=== PATIENT | female | born 1950 | race Caucasian/White ===

== ENCOUNTER 2020-02-17 08:53 | Inpatient (IN) | payer MEDICARE, OTHER, SELFPAY ==
[2020-02-17] VITALS (35 sets, daily range): BP systolic 66–149; BP diastolic 32–90; PULSE 81–109; RESP 12–20; TEMP 36.2–38.3; O2SAT 94–100; BMI 26.1
--- NOTE | 2020-02-17 | PATH_ITS ---
[facility] Accession Number: [id number] . 01 Material submitted: . gallbladder - GALLBLADDER . 01 Clinical history: . UPPER ABDOMINAL PAIN/FEVER . 02 Diagnosis: Gallbladder, Cholecystectomy: Acute and chronic cholecystitis, cholesterolosis and cholelithiasis. V 02/19/2020 1019 Local . 02 Electronically signed: . Rocio Zapata MD, Pathologist NPI- [id number] . 01 Gross description: . Received in formalin, labeled with the patient's name, MRN and gallbladder, is a 9.0 x 3.0 x 0.7 cm previously opened gallbladder with an attached 0.4 cm in length by 0.8 cm in diameter cystic duct. The serosal surface is pink-tobin and smooth. The specimen is opened to reveal a green-tobin viscous bile with multiple green-black calculi ranging in size from 0.2 cm to 0.4 cm in greatest dimension. The mucosa is pink-tobin and velvety. The gallbladder wall measures up to 0.3 cm. No abnormalities are identified. No lymph nodes are identified. The cystic duct margin is inked black. The cystic duct margin, a sales representative advertising section of the gallbladder body and gallbladder fundus are submitted in cassette A1. ([id number]) /MRV 02/18/2020 1045 Local . 02 Pathologist provided ICD-10: K81.2, K80.60 . 02 CPT . 844276 Performed at: 01 [facility] [address] [id number] MD Delano Roman MD Phone: [phone] Performed at: 02 [facility] [address] [place] [id number] MD Yana Agosto MD Phone: [phone]
--- NOTE | 2020-02-17 09:13 | ED.ABDPAIN ---
HPI - Abdominal Pain General Chief Complaint: Abdominal Pain Stated Complaint: abdominal pain/fever Time Seen by Provider: 02/17/20 08:54 Source: patient and EMS Mode of arrival: EMS History of Present Illness HPI narrative: Patient arrives by EMS from home. Complains 2 days of right upper quadrant pain. Fever as well. Nausea and vomiting. No diarrhea. No chest pain. No urinary complaints. History of gastric bypass 20 years ago and has been doing well. History of hysterectomy as well. No previous cholecystectomy or appendectomy. No back pain. MD complaint: abdominal pain Related Data Previous Rx's Medication Instructions Recorded docusate sodium 100 mg PO BID #20 cap 02/19/20 oxycodone 5 mg PO Q4H PRN #30 tab 02/19/20 Allergies Allergy/AdvReac Type Severity Reaction Status Date / Time No Known Drug Allergies Allergy Verified 02/17/20 14:46 Review of Systems Review of Systems Narrative: GENERAL: Complains chills, fatigue, malaise, fever, sweats. HEENT: Denies sinus pain, ear pain, sore throat, difficulty swallowing, dizziness. RESPIRATORY: Denies dyspnea, cough, wheezing, hemoptysis, sputum. CARDIOVASCULAR: Denies chest pain, palpitations, orthopnea, edema, GASTROINTESTINAL: Complains nausea, vomiting, abdominal pain, denies diarrhea, constipation, melena. : Denies dysuria, frequency, incontinence, hematuria, urinary retention. MUSCULOSKELETAL: denies weakness, joint pain, or bony pain SKIN: Denies rash, skin lesions, or other NEUROLOGIC: Denies weakness, headache, numbness, change in speech, confusion, seizures, incoordination. PSYCHIATRIC: No concerning psychosocial issues. ROS Unobtainable: All systems reviewed & are unremarkable except as noted in HPI and below Patient History Social History household members: family Smoking Status: Never smoker alcohol intake: never Exam Narrative Exam Narrative: GENERAL: patient appears stated age. Well-nourished, well-developed patient, in no distress, not toxic HEAD: Atraumatic. Normocephalic. EYES: Pupils equal round and reactive. Extraocular motions intact. No scleral icterus. No injection or drainage. ENT: Nose without bleeding, purulent drainage. Throat without erythema, tonsillar hypertrophy or exudate. Airway patent. NECK: Trachea midline. Non tender CARDIOVASCULAR: Regular rate and rhythm without murmurs, gallops, or rubs. RESPIRATORY: Clear to auscultation. Breath sounds equal bilaterally. No wheezes, rales, or rhonchi. GASTROINTESTINAL: Abdomen soft, positive Garner sign right upper quadrant. Tender to touch right upper quadrant. No CVA tenderness. Normal bowel sounds. No peritoneal signs. Patient prefers to lay on her right side EXTREMITIES: No edema or joint tenderness. BACK: Nontender without deformity or crepitance. No flank tenderness. NEURO: AOx3. SKIN: No rash or erythema of visible areas PSYCH: Not anxious, is cooperative Initial Vital Signs Initial Vital Signs: Vital Signs Temperature 100.9 F H 02/17/20 08:48 Pulse Rate 109 H 02/17/20 08:48 Respiratory Rate 14 02/17/20 08:48 Blood Pressure 123/57 L 02/17/20 08:48 Pulse Oximetry 98 02/17/20 08:48 Course Course Course Narrative: Surgeon called back from the operating room. Will admit directly Decision to Admit Date: 02/17/20 Decision to Admit time: 11:52 Orders Ordered: Discontinued Medications Acetaminophen (Tylenol) 975 mg PO NOW ONE Stop: 02/17/20 09:13 Last Admin: 02/17/20 09:22 Dose: 975 mg Documented by: GABBI Acetaminophen (Tylenol) 650 mg PO PACUNOW PRN PRN Reason: Pain, Mild (1-3) Acetaminophen (Tylenol) 650 mg PO Q4HR PRN PRN Reason: Fever/Mild Pain (1-3) Last Admin: 02/18/20 09:22 Dose: 650 mg Documented by: JIA Bupivacaine HCl/Epinephrine Bitart (Sensorcaine 0.25% W/ Epi (Pf)) 30 ml INJ NOW ONE Stop: 02/17/20 16:12 Last Admin: 02/17/20 17:01 Dose: 30 ml Documented by: Admin: 02/17/20 16:11 Dose: 30 ml Documented by: JEAN CARLOS Docusate Sodium (Colace) 100 mg PO BID RAMON Last Admin: 02/19/20 11:34 Dose: 100 mg Documented by: Admin: 02/18/20 21:32 Dose: 100 mg Documented by: Admin: 02/18/20 09:20 Dose: 100 mg Documented by: Admin: 02/17/20 21:53 Dose: 100 mg Documented by: FABRICIO Fentanyl (Sublimaze) 0 mcg IV Q5M PRN PRN Reason: Pain, Moderate (4-6) Last Admin: 02/17/20 18:01 Dose: 50 mcg Documented by: Admin: 02/17/20 17:38 Dose: 50 mcg Documented by: Admin: 02/17/20 17:30 Dose: 50 mcg Documented by: CHRIS Heparin Sodium (Porcine) (Heparin) 5,000 unit SUBCUT BID RAMON Last Admin: 02/19/20 11:34 Dose: 5,000 unit Documented by: Admin: 02/18/20 21:32 Dose: 5,000 unit Documented by: FABRICIO Hydromorphone HCl (Dilaudid) 0 mg IV Q5MIN PRN PRN Reason: Pain, Mild (1-3) Sodium Chloride (Normal Saline 0.9%) 1,000 mls @ 1,000 mls/hr IV BOLUS ONE Stop: 02/17/20 10:11 Last Infusion: 02/17/20 11:24 Dose: 0 mls/hr Documented by: Admin: 02/17/20 09:22 Dose: 1,000 mls/hr Documented by: GABBI Ceftriaxone Sodium/Dextrose (Rocephin) 1 gm in 50 mls @ 100 mls/hr IV NOW ONE Stop: 02/17/20 10:53 Last Infusion: 02/17/20 11:24 Dose: 0 mls/hr Documented by: Admin: 02/17/20 10:50 Dose: 100 mls/hr Documented by: LEANDER Sodium Chloride (Normal Saline 0.9%) 1,000 mls @ 1,000 mls/hr IV BOLUS ONE Stop: 02/17/20 11:46 Last Infusion: 02/17/20 12:02 Dose: 0 mls/hr Documented by: Admin: 02/17/20 10:51 Dose: 1,000 mls/hr Documented by: LEANDER Lactated Ringer's (Lactated Ringers) 1,000 mls @ 100 mls/hr IV CONT RAMON Last Admin: 02/18/20 06:18 Dose: 100 mls/hr Documented by: Infusion: 02/18/20 05:03 Dose: 100 mls/hr Documented by: Admin: 02/17/20 19:03 Dose: 100 mls/hr Documented by: Infusion: 02/17/20 17:18 Dose: 0 mls/hr Documented by: Admin: 02/17/20 14:36 Dose: 100 mls/hr Documented by: CHRIS Piperacillin/Tazobactam/Dextrose (Zosyn) 2.25 gm in 50 mls @ 100 mls/hr IV Q8H [facility] Last Admin: 02/18/20 11:51 Dose: 100 mls/hr Documented by: Infusion: 02/18/20 07:18 Dose: 0 mls/hr Documented by: Infusion: 02/18/20 04:09 Dose: 100 mls/hr Documented by: Admin: 02/18/20 04:09 Dose: 100 mls/hr Documented by: Infusion: 02/17/20 22:22 Dose: 100 mls/hr Documented by: Admin: 02/17/20 21:52 Dose: 100 mls/hr Documented by: Infusion: 02/17/20 15:27 Dose: 0 mls/hr Documented by: Admin: 02/17/20 15:22 Dose: 100 mls/hr Documented by: KRISTA Sodium Chloride (Normal Saline 0.9%) 1,000 mls @ 1,000 mls/hr IV BOLUS ONE Stop: 02/17/20 13:28 Last Admin: 02/17/20 13:00 Dose: 500 mls/hr Documented by: JEANNIE Piperacillin/Tazobactam/Dextrose (Zosyn) 2.25 gm in 50 mls @ 100 mls/hr IV Q6HR [facility] Last Infusion: 02/19/20 12:45 Dose: 0 mls/hr Documented by: Admin: 02/19/20 11:35 Dose: 100 mls/hr Documented by: Infusion: 02/19/20 07:30 Dose: 0 mls/hr Documented by: Admin: 02/19/20 06:20 Dose: 100 mls/hr Documented by: Infusion: 02/19/20 00:44 Dose: 0 mls/hr Documented by: Admin: 02/19/20 00:14 Dose: 100 mls/hr Documented by: Infusion: 02/18/20 17:11 Dose: 100 mls/hr Documented by: Admin: 02/18/20 16:41 Dose: 100 mls/hr Documented by: FABRICIO Metoclopramide HCl (Reglan) 10 mg IV NOW PRN PRN Reason: Nausea And Vomiting Last Admin: 02/17/20 17:30 Dose: 10 mg Documented by: CHRIS Morphine Sulfate (Morphine) 4 mg IV NOW ONE Stop: 02/17/20 09:13 Last Admin: 02/17/20 09:23 Dose: 4 mg Documented by: GABBI Morphine Sulfate (Morphine) 4 mg IV Q4HR PRN PRN Reason: breakthrough pain Non-Formulary Medication (Iindocyanine) 25 mg IV PREOP RAMON Last Admin: 02/17/20 14:57 Dose: 25 mg Documented by: ATEMES Ondansetron HCl (Zofran) 4 mg IV NOW ONE Stop: 02/17/20 09:13 Last Admin: 02/17/20 09:22 Dose: 4 mg Documented by: GABBI Ondansetron HCl (Zofran) 4 mg IV NOW PRN PRN Reason: Nausea And Vomiting Last Admin: 02/17/20 17:30 Dose: 4 mg Documented by: ATEMES Ondansetron HCl (Zofran) 4 mg IV Q4HR PRN PRN Reason: Nausea And Vomiting Oxycodone HCl (Percolone) 5 mg PO PACUNOW PRN PRN Reason: Mild or moderate pain Last Admin: 02/17/20 18:12 Dose: 5 mg Documented by: ATEMES Oxycodone HCl (Percolone) 10 mg PO Q3HR PRN PRN Reason: Pain, Severe (7-10) Last Admin: 02/18/20 21:32 Dose: 10 mg Documented by: Admin: 02/18/20 04:09 Dose: 10 mg Documented by: Admin: 02/17/20 21:52 Dose: 10 mg Documented by: FABRICIO Oxycodone HCl (Percolone) 5 mg PO Q4HR PRN PRN Reason: Pain, Moderate (4-6) Last Admin: 02/19/20 14:33 Dose: 5 mg Documented by: Admin: 02/19/20 11:34 Dose: 5 mg Documented by: Admin: 02/19/20 05:15 Dose: 5 mg Documented by: Admin: 02/18/20 16:41 Dose: 5 mg Documented by: Admin: 02/18/20 10:27 Dose: 5 mg Documented by: JIA Oxycodone/Acetaminophen (Percocet 5/325) 1 tab PO PACUNOW PRN PRN Reason: Mild or Moderate Pain Pantoprazole Sodium (Protonix) 40 mg IV BID [facility] Last Admin: 02/19/20 11:34 Dose: 40 mg Documented by: Admin: 02/18/20 21:32 Dose: 40 mg Documented by: Admin: 02/18/20 09:20 Dose: 40 mg Documented by: Admin: 02/17/20 21:53 Dose: 40 mg Documented by: FABRICIO Sodium Chloride (Normal Saline 0.9% Flush) 10 ml IV BID [facility] Last Admin: 02/19/20 11:35 Dose: 10 ml Documented by: JIA Sodium Chloride (Normal Saline 0.9% Flush) 10 ml IV PRN PRN PRN Reason: Flush Last Admin: 02/19/20 06:19 Dose: 10 ml Documented by: Admin: 02/19/20 00:14 Dose: 10 ml Documented by: ALLEN Reevaluation(s) Reevaluation #1: Pain is controlled. Blood pressure was hypotensive briefly but responded very well as IV fluids. Currently 104/57. Heart rate 94. Temperature 99.4? Time: 11:52 Consultations Consultation #1: Spoke with surgeon dr hoyos..will see pt in er Time: 11:53 Vital Signs Vital signs: Vital Signs - 8 hr 02/17/20 08:48 02/17/20 10:07 02/17/20 10:08 Temperature 100.9 F H Pulse Rate 109 H 107 H 105 H Respiratory Rate 14 12 Blood Pressure 123/57 L Pulse Oximetry 98 97 98 02/17/20 10:10 02/17/20 10:13 02/17/20 10:15 Temperature Pulse Rate 105 H 104 H 104 H Respiratory Rate 17 13 13 Blood Pressure 82/49 L 86/50 L Pulse Oximetry 98 98 98 02/17/20 10:30 02/17/20 10:36 02/17/20 10:39 Temperature Pulse Rate 102 H 99 H 99 H Respiratory Rate 16 16 19 Blood Pressure 66/34 L 67/32 L 69/36 L Pulse Oximetry 97 97 97 02/17/20 10:45 02/17/20 11:00 Temperature 99.4 F Pulse Rate 97 H 94 H Respiratory Rate 12 19 Blood Pressure 104/57 L Pulse Oximetry 98 95 MDM - Abdominal Pain Lab Data Attestation: I reviewed the patient's lab results. Result diagrams: 02/19/20 06:25 02/18/20 04:50 Labs: Lab Results 02/17/20 02/17/20 02/17/20 Range/Units 09:05 09:05 12:08 WBC 4.9 (4.5-11.0) X10^3/uL RBC 3.78 L (4.0-5.2) X10^6/uL Hgb 12.2 (12.0-16.0) g/dL Hct 35.1 L (36-46) % MCV 92.8 (80-100) fL MCH 32.2 (26-34) PG MCHC 34.7 (30-36) % RDW 12.6 (11.6-14.8) % Plt Count 189 (150-400) X10^3/uL Neut % (Auto) 97.7 H (50-75) % Lymph % (Auto) 1.6 L (25-40) % [place] % (Auto) 0.5 L (3-14) % Eos % (Auto) 0.0 L (2-4) % Baso % (Auto) 0.2 (0-2) % Neut # (Auto) 4800 (3907-4432) /uL Lymph # (Auto) 100 L (5844-3656) /uL [place] # (Auto) 0 (0-900) /uL Eos # (Auto) 0 (0-450) /uL Baso # (Auto) 0 (0-100) /uL Sodium 138 (137-145) mmol/L Potassium 3.3 L (3.4-5.1) mmol/L Chloride 106 (98-107) mmol/L Carbon Dioxide 19 L (22-32) mmol/L BUN 40 H (7-17) mg/dL Creatinine 1.54 H (0.52-1.04) mg/dL Estimated GFR 33.1 L (>60) mL/min BUN/Creatinine Ratio 26.0 H (6-22) Glucose 162 H (80-110) mg/dL Calcium 10.3 H (8.4-10.2) mg/dL Total Bilirubin 2.8 H (0.2-1.3) mg/dL AST 664 H (14-36) IU/L ALT 347 H (<35) IU/L Alkaline Phosphatase 137 H (38-126) U/L Total Protein 7.8 (6.3-8.2) g/dL Albumin 4.3 (3.5-5.0) g/dL Globulin 3.5 (1.7-4.1) g/dL Albumin/Globulin Ratio 1.2 (1.0-2.8) Lipase 172 (23-300) U/L COVID-19 PCR Negative (Negative) Imaging Data CT scan - abdomen/pelvis: Radiologist's Impression: [place] [address] CT Scan Report Signed Patient: Carrol Andersen WMR#: [id number] : 8Acct:[id number] Age/Sex: 70 / FDate of Service: 02/17/20 Loc: ED Accession Number: [id number] Procedure: CT abdomen pelvis wo con Ordering Provider: Adams Taylor MD PROCEDURE: CT ABDOMEN PELVIS WO CON INDICATIONS: RIGHT UPPER QUAD PAIN TECHNIQUE: Noncontrast 5 mm thick sections acquired from the diaphragms to the symphysis. 5 mm coronal and sagittal reformats were then performed. For radiation dose reduction, the following was used: automated exposure control, adjustment of mA and/or kV according to patient size. COMPARISON: None. FINDINGS: Image quality: Excellent. ABDOMEN: Lung bases: Incompletely visualized nodule within the right middle lobe anteriorly measuring at least 5 mm diameter. Lung bases are otherwise clear. Heart size is normal. Calcification of the coronary vasculature. Solid organs: Liver is normal in size. Gallbladder demonstrates multiple calculi within its lumen. There is posterior gallbladder wall thickening versus is layering sludge. No evidence of surrounding fat stranding. Pancreas is normal in contours. Spleen is normal in size. No adrenal nodules. Kidneys are normal in size, without hydronephrosis or nephrolithiasis. There is mild symmetrical perinephric fat stranding bilaterally. Peritoneum and bowel: Moderate hiatal hernia. Surgical clips at the gastroesophageal junction. Unenhanced bowel loops demonstrate normal wall thickness and caliber. No free fluid or air. Nodes and vessels: No retroperitoneal or mesenteric adenopathy by size criteria. Aorta and inferior vena cava are normal in caliber. Miscellaneous: No ventral hernias. PELVIS: Genitourinary: Bladder wall thickness is normal. Miscellaneous: No inguinal hernias or adenopathy. Bones: No suspicious bony lesions. Right hip arthroplasty. No vertebral body compression fractures. IMPRESSION: 1. No evidence of urinary tract calcification, nor obstruction. 2. Cholelithiasis with possible gallbladder wall thickening; initial further assessment with ultrasound to assess for cholecystitis is recommended. 3. It incompletely visualized right middle lobe pulmonary nodule; initial further assessment with noncontrast chest CT is recommended. 4. Coronary artery disease. Dictated by: Malinda Ray M.D. on 02/17/2020 at 10:12 Approved by: Malinda Ray M.D. on 02/17/2020 at 10:16 US - abdomen: Radiologist's Impression: [place] [address] Ultrasound Report Signed Patient: Carrol Andersen WMR#: [id number] : 8Acct:[id number] Age/Sex: 70 / FDate of Service: 02/17/20 Loc: ED Accession Number: [id number] Procedure: US abdomen limited Ordering Provider: Adams Taylor MD PROCEDURE: US ABDOMEN LIMITED INDICATIONS: RUQ PAIN, ABN CT TECHNIQUE: Real-time scanning was performed of the abdominal and retroperitoneal organs, with image documentation. COMPARISON: None. FINDINGS: Liver: Liver is normal in size and is coarsely echogenic. No discrete hepatic lesion is noted. Gallbladder: Gallbladder is distended. Mobile stones and sludge material is seen in dependent portion of gallbladder lumen. Mild gallbladder wall thickening is seen measures up to 8 millimeters in thickness. Trace amount of pericholecystic fluid is seen with suggestion of sonographic Garner sign. Biliary ducts: Intrahepatic bile ducts are non-dilated. Extrahepatic bile duct caliber measures 8 mm. Normal is 6-7 mm or less in diameter, or 10 mm or less post-cholecystectomy. Pancreas: Visualized portions of the pancreas are sonographically normal. IMPRESSION: 1. Distended gallbladder with cholelithiasis and gallbladder wall thickening. Small amount of pericholecystic fluid and sonographic Garner sign was noted during this study. Finding is suggestive of acute cholecystitis. 2. Mildly prominent common bile duct measures up to 8 millimeters in diameter. 3. Suggestion of hepatic steatosis. Dictated by: Rajinder Vázquez M.D. on 02/17/2020 at 10:21 Approved by: Rajinder Vázquez M.D. on 02/17/2020 at 10:23 ECG Data Attestation: I personally reviewed and interpreted this ECG as follows: Interpretation: Sinus tachycardia no ST elevation or depression MDM Narrative Medical decision making narrative: Of appropriate for admission hospital for acute cholecystitis. Antibiotics given. Surgeon contacted. Desires to have MRCP/MRI Discharge Plan Departure Patient Disposition: Admitted As Inpatient Clinical Impression: Acute calculous cholecystitis Discharge Date/Time: 02/17/20 13:03 Instructions: DI for Lam-Judd Drains, How to Prevent Falls, DI for Prescription Opioid Use, Stool Softeners, Oxycodone, DI for Laparoscopic Cholecystectomy, [facility]: Wound Care Referrals: Lorrie Hoyos MD [Physician] - Admit Date/Time: 02/17/20 12:14 Admit Provider: Lorrie Hoyos Forms: Surgery Discharge
[2020-02-17 09:18] LABS: Add Manual Diff / Slide Review NO; Basophils Absolute Auto 0 /uL (0-100); Basophils Percent Auto 0.2 % (0-2); Eosinophils Absolute Auto 0 /uL (0-450); Hematocrit 35.1 % (36-46); Hemoglobin 12.2 g/dL (12.0-16.0); Lymphocytes Absolute Auto 100 /uL (1100-4500); Lymphocytes Percent Auto 1.6 % (25-40); Mean Corpuscular HGB Conc 34.7 % (30-36); Mean Corpuscular Hemoglobin 32.2 PG (26-34); Mean Corpuscular Volume 92.8 fL (80-100); Monocytes Absolute Auto 0 /uL (0-900); Monocytes Percent Auto 0.5 % (3-14); Neutrophils Absolute Auto 4800 /uL (1500-7000); Neutrophils Percent Auto 97.7 % (50-75); Platelet Count 189 X10^3/uL (150-400); Red Blood Cell Count 3.78 X10^6/uL (4.0-5.2); Red Cell Distribution Width 12.6 % (11.6-14.8); White Blood Cell Count 4.9 X10^3/uL (4.5-11.0)
[2020-02-17] MEDS: ONDANSETRON 4 MG/2 ML INJ IV ×2 (09:22→17:30)
[2020-02-17] MEDS: SODIUM CHLORIDE 0.9% 1,000 ML 1000 ML IV ×2 (09:22→10:51)
[2020-02-17] MEDS: ACETAMINOPHEN 325 MG TABLET 975 MG PO (09:22)
[2020-02-17] MEDS: MORPHINE 4 MG/ML INJ IV (09:23)
[2020-02-17 09:30] LABS: Alanine Aminotransferase 347 IU/L (<35); Albumin 4.3 g/dL (3.5-5.0); Albumin Globulin Ratio 1.2 (1.0-2.8); Alkaline Phosphatase 137 U/L (38-126); Aspartate Aminotransferase 664 IU/L (14-36); Bilirubin Total 2.8 mg/dL (0.2-1.3); Blood Urea Nitrogen 40 mg/dL (7-17); Calcium 10.3 mg/dL (8.4-10.2); Carbon Dioxide 19 mmol/L (22-32); Chloride 106 mmol/L (98-107); Estimated Glomerular Filt Rate 33.1 mL/min (>60); Globulin 3.5 g/dL (1.7-4.1); Glucose 162 mg/dL (80-110); HEMOLYSIS < 15 (0-50); Lipase 172 U/L (23-300); Potassium 3.3 mmol/L (3.4-5.1); Sodium 138 mmol/L (137-145); Total Protein 7.8 g/dL (6.3-8.2)
--- NOTE | 2020-02-17 10:29 | DI.US.S_ITS ---
PROCEDURE: US ABDOMEN LIMITED INDICATIONS: RUQ PAIN, ABN CT TECHNIQUE: Real-time scanning was performed of the abdominal and retroperitoneal organs, with image documentation. COMPARISON: None. FINDINGS: Liver: Liver is normal in size and is coarsely echogenic. No discrete hepatic lesion is noted. Gallbladder: Gallbladder is distended. Mobile stones and sludge material is seen in dependent portion of gallbladder lumen. Mild gallbladder wall thickening is seen measures up to 8 millimeters in thickness. Trace amount of pericholecystic fluid is seen with suggestion of sonographic Garner sign. Biliary ducts: Intrahepatic bile ducts are non-dilated. Extrahepatic bile duct caliber measures 8 mm. Normal is 6-7 mm or less in diameter, or 10 mm or less post-cholecystectomy. Pancreas: Visualized portions of the pancreas are sonographically normal. IMPRESSION: 1. Distended gallbladder with cholelithiasis and gallbladder wall thickening. Small amount of pericholecystic fluid and sonographic Garner sign was noted during this study. Finding is suggestive of acute cholecystitis. 2. Mildly prominent common bile duct measures up to 8 millimeters in diameter. 3. Suggestion of hepatic steatosis. Dictated by: Rajinder Vázquez M.D. on 02/17/2020 at 10:21 Approved by: Rajinder Vázquez M.D. on 02/17/2020 at 10:23
[2020-02-17] MEDS: CEFTRIAXONE 1 GM/50 ML FROZ.PIGGY IV (10:50)
--- NOTE | 2020-02-17 12:37 | P.HP_ITS ---
History of Present Illness History of Present Illness Date Patient Seen: 02/17/20 Time Patient Seen: 12:37 Chief complaint: upper abdominal pain/fever Narrative: This is a 70-year-old woman with history of DM2, HTN, hysterectomy, and Tristen-en-Y gastric bypass many years ago, and marginal ulcer, who has had several episodes of epigastric pain, the worst of which was beginning last evening and has lasted through the night into this morning. She came into the ER with severe epigastric pain was found to have imaging and labs consistent with acute cholecystitis. Her LFTs and bilirubin are elevated, and her bile duct was enlarged on ultrasound, and therefore MRCP was recommended, and is pending at this time. She denies any significant cardiac history. She does say she has a chronic kidney dysfunction, which has been stable for many years. Her creatinine in the ER is 1.5. Her AST and ALT are 664 in 347, her alk-phos is 137, and her T bili is 2.8. Her white count is 4.9, and she has a left shift with PMNs 98%. She denies any fever or jaundice at home. She did have a temperature 100.9? when she came into the ER, which has come down to 99.4 at this time. She has gotten Rocephin and some fluid boluses. Her blood pressure dropped into the 60s a few hours ago, but has been in the 1 100s systolic for the past few hours. She is normally hypertensive at baseline, and takes antihypertensive medications. PMH: DM2, HTN, CKD, marginal ulcer PSH: RYGBP 20 years ago, hysterectomy, tummy tuck Meds: omeprazole, irbesartan, HCTZ (pt does not know doses, but daughter will find out and call nurse) Allergies: denies FMH: DM2, denies family history of liver or biliary disease SOC: denies TOB, EtOH, other substances; moved here three weeks ago from [facility]; says she maintained excellent medical care in [place] Review of Systems Narrative: GENERAL: Complains chills, fatigue, malaise, fever, sweats. HEENT: Denies sinus pain, ear pain, sore throat, difficulty swallowing, dizziness. RESPIRATORY: Denies dyspnea, cough, wheezing, hemoptysis, sputum. CARDIOVASCULAR: Denies chest pain, palpitations, orthopnea, edema, GASTROINTESTINAL: Complains nausea, vomiting, abdominal pain, denies diarrhea, constipation, melena. : Denies dysuria, frequency, incontinence, hematuria, urinary retention. MUSCULOSKELETAL: denies weakness, joint pain, or bony pain SKIN: Denies rash, skin lesions, or other NEUROLOGIC: Denies weakness, headache, numbness, change in speech, confusion, seizures, incoordination. PSYCHIATRIC: No concerning psychosocial issues. Physical Exam GENERAL: Alert, uncomfortable. No jaundice. Nontoxic appearing. Appears stated age. Answers questions promptly and appropriately. Vital signs noted. HENT: Normocephalic, atraumatic. Hearing intact. EYES: Conjunctiva pink, sclera white, no periorbital swelling. CARDIOVASCULAR: Regular rate. No pedal edema. RESPIRATORY: Non-tachypneic, breathing comfortably on room air. GASTROINTESTINAL: Abdomen soft and non-distended; minimally tender, with well- healed laparoscopic gastric bypass incisional scar GENITALURINARY: No flank tenderness. MUSCULOSKELETAL: Equal tone and mass bilaterally. SKIN: Warm, dry, soft, appropriate color for ethnicity. No other lesions, rashes, or wounds. NEURO: Alert and Oriented X 3. No gross sensory deficits, or cognitive issues. PSYCH: Appropriate affect and mood. Patient History Family & Social History Safety & Behavioral: Feels Safe in Current Yes Environment Been Physically Hurt or No Threatened By a Person Tobacco & Substance use: Smoking Status Unknown if ever smoked alcohol intake frequency holiday/special occasion Substance Use Type does not use Meds Home Medications and Allergies Allergies Allergy/AdvReac Type Severity Reaction Status Date / Time No Known Drug Allergies Allergy Verified 02/17/20 14:46 Exam Vital Signs (past 8 hours): - 02/17/20 08:48 02/17/20 10:07 02/17/20 10:08 Temperature 100.9 F H Pulse Rate 109 H 107 H 105 H Respiratory Rate 14 12 Blood Pressure 123/57 L Pulse Oximetry 98 97 98 02/17/20 10:10 02/17/20 10:13 02/17/20 10:15 Temperature Pulse Rate 105 H 104 H 104 H Respiratory Rate 17 13 13 Blood Pressure 82/49 L 86/50 L Pulse Oximetry 98 98 98 02/17/20 10:30 02/17/20 10:36 02/17/20 10:39 Temperature Pulse Rate 102 H 99 H 99 H Respiratory Rate 16 16 19 Blood Pressure 66/34 L 67/32 L 69/36 L Pulse Oximetry 97 97 97 02/17/20 10:45 02/17/20 11:00 02/17/20 11:15 Temperature 99.4 F Pulse Rate 97 H 94 H 94 H Respiratory Rate 12 19 19 Blood Pressure 104/57 L 103/59 L Pulse Oximetry 98 95 95 02/17/20 11:30 02/17/20 11:45 02/17/20 12:00 Temperature Pulse Rate 93 H 89 93 H Respiratory Rate 19 17 16 Blood Pressure 99/56 L 104/55 L 105/55 L Pulse Oximetry 98 97 100 02/17/20 12:15 02/17/20 12:30 Temperature Pulse Rate 92 H 94 H Respiratory Rate 18 15 Blood Pressure 102/57 L 106/59 L Pulse Oximetry 100 98 Oxygen Delivery Method Room Air Objective Imaging CT scan - abdomen: My impression: Thickened dilated gall bladder with edema Radiologist's impression: PROCEDURE: CT ABDOMEN PELVIS WO CON INDICATIONS: RIGHT UPPER QUAD PAIN TECHNIQUE: Noncontrast 5 mm thick sections acquired from the diaphragms to the symphysis. 5 mm coronal and sagittal reformats were then performed. For radiation dose reduction, the following was used: automated exposure control, adjustment of mA and/or kV according to patient size. COMPARISON: None. FINDINGS: Image quality: Excellent. ABDOMEN: Lung bases: Incompletely visualized nodule within the right middle lobe anteriorly measuring at least 5 mm diameter. Lung bases are otherwise clear. Heart size is normal. Calcification of the coronary vasculature. Solid organs: Liver is normal in size. Gallbladder demonstrates multiple calculi within its lumen. There is posterior gallbladder wall thickening versus is layering sludge. No evidence of surrounding fat stranding. Pancreas is normal in contours. Spleen is normal in size. No adrenal nodules. Kidneys are normal in size, without hydronephrosis or nephrolithiasis. There is mild symmetrical perinephric fat stranding bilaterally. Peritoneum and bowel: Moderate hiatal hernia. Surgical clips at the gastroesophageal junction. Unenhanced bowel loops demonstrate normal wall thickness and caliber. No free fluid or air. Nodes and vessels: No retroperitoneal or mesenteric adenopathy by size criteria. Aorta and inferior vena cava are normal in caliber. Miscellaneous: No ventral hernias. PELVIS: Genitourinary: Bladder wall thickness is normal. Miscellaneous: No inguinal hernias or adenopathy. Bones: No suspicious bony lesions. Right hip arthroplasty. No vertebral body compression fractures. IMPRESSION: 1. No evidence of urinary tract calcification, nor obstruction. 2. Cholelithiasis with possible gallbladder wall thickening; initial further assessment with ultrasound to assess for cholecystitis is recommended. 3. It incompletely visualized right middle lobe pulmonary nodule; initial further assessment with noncontrast chest CT is recommended. 4. Coronary artery disease. Dictated by: aMlinda Ray M.D. on 02/17/2020 at 10:12 Approved by: Malinda Ray M.D. on 02/17/2020 at 10:16 US - abdomen: Radiologist's Impression: [address] [address] Ultrasound Report Signed Patient: Carrol Andersen WMR#: [id number] : 8Acct:[id number] Age/Sex: 70 / FDate of Service: 02/17/20 Loc: ED Accession Number: [id number] Procedure: US abdomen limited Ordering Provider: Adams Taylor MD PROCEDURE: US ABDOMEN LIMITED INDICATIONS: RUQ PAIN, ABN CT TECHNIQUE: Real-time scanning was performed of the abdominal and retroperitoneal organs, with image documentation. COMPARISON: None. FINDINGS: Liver: Liver is normal in size and is coarsely echogenic. No discrete hepatic lesion is noted. Gallbladder: Gallbladder is distended. Mobile stones and sludge material is seen in dependent portion of gallbladder lumen. Mild gallbladder wall thickening is seen measures up to 8 millimeters in thickness. Trace amount of pericholecystic fluid is seen with suggestion of sonographic Garner sign. Biliary ducts: Intrahepatic bile ducts are non-dilated. Extrahepatic bile duct caliber measures 8 mm. Normal is 6-7 mm or less in diameter, or 10 mm or less post-cholecystectomy. Pancreas: Visualized portions of the pancreas are sonographically normal. IMPRESSION: 1. Distended gallbladder with cholelithiasis and gallbladder wall thickening. Small amount of pericholecystic fluid and sonographic Garner sign was noted during this study. Finding is suggestive of acute cholecystitis. 2. Mildly prominent common bile duct measures up to 8 millimeters in diameter. 3. Suggestion of hepatic steatosis. Dictated by: Rajinder Vázquez M.D. on 02/17/2020 at 10:21 Approved by: Rajinder Vázquez M.D. on 02/17/2020 at 10:23 Labs Result Diagrams: 02/17/20 09:05 02/17/20 09:05 Labs: Laboratory Results - last 24 hr 02/17/20 02/17/20 09:05 09:05 WBC 4.9 RBC 3.78 L Hgb 12.2 Hct 35.1 L MCV 92.8 MCH 32.2 MCHC 34.7 RDW 12.6 Plt Count 189 Neut % (Auto) 97.7 H Lymph % (Auto) 1.6 L [place] % (Auto) 0.5 L Eos % (Auto) 0.0 L Baso % (Auto) 0.2 Neut # (Auto) 4800 Lymph # (Auto) 100 L [place] # (Auto) 0 Eos # (Auto) 0 Baso # (Auto) 0 Sodium 138 Potassium 3.3 L Chloride 106 Carbon Dioxide 19 L BUN 40 H Creatinine 1.54 H Estimated GFR 33.1 L BUN/Creatinine Ratio 26.0 H Glucose 162 H Calcium 10.3 H Total Bilirubin 2.8 H AST 664 H ALT 347 H Alkaline Phosphatase 137 H Total Protein 7.8 Albumin 4.3 Globulin 3.5 Albumin/Globulin Ratio 1.2 Lipase 172 Assessment & Plan Assessment and plan (1) Acute calculous cholecystitis: Status: Acute (2) HTN (hypertension): Status: Acute (3) H/O gastric bypass: Status: Acute (4) Chronic marginal ulcer: Status: Acute (5) CKD (chronic kidney disease) stage 3, GFR 30-59 ml/min: Status: Acute Assessment & Plan narrative: This is a 70 yo woman with acute calculus cholecy stitis. Risks and benefits of laparoscopic possible open cholecystectomy, possible intra op cholangiogram were discussed with the patient who desires to proceed with surgery. Risk of bleeding, infection , damage to nearby structures, need for additional procedures, bile leak, bile duct injury, need for open surgery, need for transfer to tertiary center. The patient desires to proceed. Plan: proceed to OR for lap/open hira admit post op for ongoing IV antibiotics COVID-19 COVID-19 status: Negative Result date/Date tested (Pos, Neg/Pending): 02/17/20 Quality VTE Deep Vein Thrombosis/Pulmonary Embolism Present on Admission: No
[2020-02-17] MEDS: SODIUM CHLORIDE 0.9% 1,000 ML 500 ML IV (13:00)
[2020-02-17 13:11] LABS: COVID19 -Nasal RAPID Negative (Negative)
[2020-02-17] MEDS: ONDANSETRON 4 MG/2 ML INJ (13:31)
--- NOTE | 2020-02-17 14:29 | PC.NURSE ---
Admit Pt arrived from ER nausea, emesis reported. Medicated. IVF infusing. Pt taken to MRI and promptly down to PACU on arrival back to floor. 1420. Daughter is in room and assisted to complete admission. She will await update in Rm 222.
--- NOTE | 2020-02-17 14:34 | DI.MRI.S_ITS ---
PROCEDURE: MR ABDOMEN WO CON INDICATIONS: Acute cholecystitis TECHNIQUE: Coronal HASTE through the abdomen, axial 2-D FLASH in- and [id number], and breath-hold T2 FSE with fat saturation through the biliary system and pancreas. Oblique coronal and axial thin-slice HASTE, radial thick-slab HASTE centered on the extrahepatic bile ducts. Intravenous secretin: Not requested. COMPARISON: None. FINDINGS: Image quality: Excellent. Pancreas and biliary system: Gallbladder is distended and there is diffuse gallbladder wall edema in keeping with acute cholecystitis. There are numerous layering in the dependent gallstones measuring up to 9 mm No extrahepatic bile duct dilatation. No intrahepatic bile duct dilatation. There is significant motion artifact on the axial thin slice T2 weighted pulse sequence, with some intraluminal signal abnormalities which are probably artifactual given that they are not confirmed on any other pulse sequences. The ampullary segment is not well seen, technically nonspecific and recommend clinical correlation to exclude stricture , versus spasm. Other solid organs: Liver is normal in size. Spleen is normal in size. No adrenal nodules. Bilateral T2 hyperintense presumed renal cysts. Nodes and vessels: No retroperitoneal or mesenteric adenopathy by size criteria. Aorta and inferior vena cava are normal in size. Bowel and peritoneum: Unenhanced bowel loops are normal in caliber. No free fluid. Small hiatal hernia. Lung bases: No basal pleural effusions. Heart size is normal. Bones and soft tissues: No ventral hernias. Bone marrow is of normal overall signal. IMPRESSION: Acute cholecystitis and cholelithiasis. No definite choledocholithiasis although motion degraded examination as discussed above. Findings personally discussed with Dr. Hoyos on 02/17/20. Dictated by: Yang Knapp M.D. on 02/17/2020 at 14:54 Approved by: Yang Knapp M.D. on 02/17/2020 at 15:02
[2020-02-17] MEDS: LACTATED RINGERS 1,000 ML 100 ML IV ×2 (14:36→19:03)
[2020-02-17] MEDS: INDOCYANINE GREEN 25 EACH IV (14:57)
[2020-02-17] MEDS: PIPERACILLIN-TAZO 2.25 GM/50 ML FROZ.PIGGY IV ×2 (15:22→21:52)
--- NOTE | 2020-02-17 15:59 | SUR.OPER ---
Supine on padded OR bed, head on pillow, safety belt at thigh, left arm padded and tucked at side. Right arm secured on padded arm oard <90 degrees abduction. Legs uncrossed. Padded footboard in place. Tape over blanket to secure lower legs.
[2020-02-17] MEDS: BUPIVACAINE 0.25% W/ EPI 30 ML VIAL INJ ×2 (16:11→17:01)
--- NOTE | 2020-02-17 16:28 | SUR.OPER ---
19fr martha drain
--- NOTE | 2020-02-17 17:13 | P.OP_ITS ---
Operative Date/Time/Diagnoses Date of procedure: 02/17/20 Time of procedure: 17:13 Pre-op diagnosis: Acute cholecystitis, transaminitis Post-op diagnosis: same Procedure & Clinicians Procedure: Laparoscopic cholecystectomy, indocyanine cholangiography Same procedure as scheduled: Yes Indications: 70 yo woman with acute cholecystitis by imaging, labs, and history Surgeon: Lorrie Hoyos Click Yes if Unassisted: Yes Anesthesia Type: General Operative Notes Findings: Flaccid gall bladder with transmural leakage of bile through the gall bladder wall, dense adhesions of the omentum to the gall bladder surface; good critical view of safety prior to dividing the cystic duct Specimen(s): other (gall bladder) Estimated Blood Loss (mL): 30 Procedure in detail: The patient was brought into the operating room and placed supine on the OR table. Sequential compression devices were placed on both legs and turned on. Appropriate perioperative antibiotics were given prior to the start of surgery. General anesthesia was induced the patient was intubated. The abdomen was prepped and draped in sterile fashion. Surgical time-out was conducted. Local anesthetic was injected under the skin just superior to the umbilicus and a 5 mm vertical incision was made at this site. The umbilical stalk was grasped with a Darrius and elevated. A Veress needle was passed through the fascia into proper position. The position was tested with a saline drop test which was appropriate for intra-abdominal Veress needle placement. The abdomen was then insufflated in the usual fashion. Once insufflated to 15 mm Hg the Veress needle was removed and a 5 mm optical trocar was placed under direct vision using a 5 mm 30 degree scope. Once the camera was inside the abdomen I took a look around. There was no injury from port placement. Two additional ports were placed in a similar fashion in the right upper quadrant and a 10 mm port was placed in the epigastrium. I grasped and elevated the gall bladder, and found that it was covered with adherent omentum. The omentum was carefully dissected down, revealing a tense and borderline gangrenous gall bladder with transmural leakage of bile. There was bile tinged pericholecystic fluid without evidence of a gall bladder perforation. I grasped the fundus with a toothed grasper and elevated it in the usual way. I laparoscopic needle had to be used to drain the gall bladder so that it could be grasped. The bile was dark brownish green. Once it was draine d I positioned it to dissect out the hilum by elevating it and retracting the hilum to the patient's right. Indocyanine green was given previously in the pre op area, so at this point I was able to turn on the flourescent lamp and view the bile ducts. This was very helpful as the ducts were obscured with acute and chronic inflammatory tissue. Once the pathway of the ducts was clearly seen, I was able to proceed with dissection of the cystic duct and artery. Once I was able to clearly identify the cystic duct and artery with liver behind and between the two structures, I placed three clips on the patient side and once clip on the gall bladder side and divided the duct and artery using laparoscopic Sheldon. The cystic duct was soft, without evidence of obstructing stones. I placed an 0 PDS endoloop on the duct to ensure it was securely closed. Once this was done, I dissected the gall bladder off of the gall bladder fossa of the liver with cautery. The liver was soft and fatty, and it cracked and bled easily. Bleeding was controlled with cautery and Surgicell. Once the gall bladder was entirely freed from the liver, the gall bladder was placed inside an Endo-Catch bag and removed through the epigastric port site. I did not have to enlarge the epigastric site in order to get the gallbladder out as it was drained out. Once it was out and passed off to the back table I then took another look inside the abdomen. I irrigated with one liter of saline, and suctioned clean any remaining blood or fluid on the lateral side of the liver and in the subhepatic space. There was no further bleeding or bile seen. At this point a 19 round martha drain was placed through the right lateral port site, and positioned in the gall bladder fossa. The drain was secured to the skin with a 3-0 Nylon suture. The epigastric port site was closed with O Vicryl using a Gera Erin device. At this point the insufflation was removed from the abdomen and the epigastric port site was closed with 3-O Vicryl in the subcutaneous layers, and 4 Monocryl in the skin. The remaining port sites were closed with 4 Monocryl in the skin. The epigastric port site was sealed with steri strips. The remaining ports were sealed with Dermabond. Local anesthetic was given at each of the port sites and in the fascia. This concluded the procedure. At this point the needle sponge and instrument counts were correct x 2. The gallbladder was passed off the table for pathology. Patient was awakened from anesthesia and extubated. She was transferred to the postanesthesia care unit in stable condition. Complications: none Post-operative Condition: stable Disposition: PACU
[2020-02-17] MEDS: METOCLOPRAMIDE 10 MG/2 ML INJ IV (17:30)
[2020-02-17] MEDS: fentaNYL 100 MCG/2 ML INJ IV ×3 (17:30→18:01)
[2020-02-17] MEDS: OXYCODONE IR 5 MG TABLET PO (18:12)
--- NOTE | 2020-02-17 18:23 | SUR.PHASEI ---
Medicated for c/o nausea and pain.
[2020-02-17] MEDS: OXYCODONE IR 10 MG TABLET PO (21:52)
[2020-02-17] MEDS: PANTOPRAZOLE 40 MG VIAL IV (21:53)
[2020-02-17] MEDS: DOCUSATE 100 MG CAPSULE PO (21:53)
[2020-02-18 04:00] VITALS: BP 124/65; PULSE 79; RESP 17; TEMP 37.3; O2SAT 98
[2020-02-18] MEDS: OXYCODONE IR 10 MG TABLET PO ×2 (04:09→21:32)
[2020-02-18] MEDS: PIPERACILLIN-TAZO 2.25 GM/50 ML FROZ.PIGGY IV ×3 (04:09→16:41)
[2020-02-18 05:13] LABS: Add Manual Diff / Slide Review NO; Basophils Absolute Auto 0 /uL (0-100); Basophils Percent Auto 0.1 % (0-2); Eosinophils Absolute Auto 0 /uL (0-450); Eosinophils Percent Auto 0.1 % (2-4); Hemoglobin 9.7 g/dL (12.0-16.0); Lymphocytes Absolute Auto 300 /uL (1100-4500); Lymphocytes Percent Auto 1.8 % (25-40); Mean Corpuscular HGB Conc 33.6 % (30-36); Mean Corpuscular Hemoglobin 31.8 PG (26-34); Mean Corpuscular Volume 94.7 fL (80-100); Monocytes Absolute Auto 700 /uL (0-900); Monocytes Percent Auto 4.2 % (3-14); Neutrophils Absolute Auto 16300 /uL (1500-7000); Neutrophils Percent Auto 93.8 % (50-75); Platelet Count 128 X10^3/uL (150-400); Red Blood Cell Count 3.06 X10^6/uL (4.0-5.2); Red Cell Distribution Width 12.7 % (11.6-14.8); White Blood Cell Count 17.4 X10^3/uL (4.5-11.0)
[2020-02-18 05:22] LABS: Alanine Aminotransferase 280 IU/L (<35); Albumin Globulin Ratio 1.1 (1.0-2.8); Alkaline Phosphatase 55 U/L (38-126); Aspartate Aminotransferase 294 IU/L (14-36); BUN Creatinine Ratio 20.1 (6-22); Bilirubin Total 0.8 mg/dL (0.2-1.3); Blood Urea Nitrogen 31 mg/dL (7-17); Calcium 8.4 mg/dL (8.4-10.2); Carbon Dioxide 22 mmol/L (22-32); Chloride 105 mmol/L (98-107); Estimated Glomerular Filt Rate 33.1 mL/min (>60); Globulin 2.8 g/dL (1.7-4.1); Glucose 137 mg/dL (80-110); HEMOLYSIS < 15 (0-50); Sodium 135 mmol/L (137-145); Total Protein 5.8 g/dL (6.3-8.2)
[2020-02-18] MEDS: LACTATED RINGERS 1,000 ML 100 ML IV (06:18)
[2020-02-18 08:30] VITALS: BP 100/56; PULSE 76; RESP 16; TEMP 37.2; O2SAT 100
--- NOTE | 2020-02-18 08:51 | P.PN_ITS ---
Subjective Subjective Date Patient Seen: 02/18/20 Time Patient Seen: 08:51 Interval history: No acute events over night. Pt says she feels much better. Not much appetite, c/o headache. Exam Vital Signs (past 8 hours): - 02/18/20 04:00 Temperature 99.2 F Pulse Rate 79 Respiratory Rate 17 Blood Pressure 124/65 Pulse Oximetry 98 Oxygen Delivery Method Room Air Oxygen Flow Rate 0 Narrative Exam Narrative: GENERAL: Alert, comfortable. Answers questions promptly and appropriately. Vital signs noted. HENT: Normocephalic, atraumatic. Hearing intact. EYES: Conjunctiva pink, sclera white, no periorbital swelling. CARDIOVASCULAR: Regular rate. No pedal edema. RESPIRATORY: Non-tachypneic, breathing comfortably on room air. GASTROINTESTINAL: Abdomen soft and non-distended, PARTH drain with then serosanguineous output GENITALURINARY: No flank tenderness. MUSCULOSKELETAL: Equal tone and mass bilaterally. SKIN: Warm, dry, soft, appropriate color for ethnicity. No other lesions, rashes, or wounds. NEURO: Alert and Oriented X 3. No gross sensory deficits, or cognitive issues. PSYCH: Appropriate affect and mood. Objective Labs Result Diagrams: 02/18/20 04:50 02/18/20 04:50 Labs: Laboratory Results - last 24 hr 02/17/20 02/17/20 02/17/20 09:05 09:05 12:08 WBC 4.9 RBC 3.78 L Hgb 12.2 Hct 35.1 L MCV 92.8 MCH 32.2 MCHC 34.7 RDW 12.6 Plt Count 189 Neut % (Auto) 97.7 H Lymph % (Auto) 1.6 L [place] % (Auto) 0.5 L Eos % (Auto) 0.0 L Baso % (Auto) 0.2 Neut # (Auto) 4800 Lymph # (Auto) 100 L [place] # (Auto) 0 Eos # (Auto) 0 Baso # (Auto) 0 Sodium 138 Potassium 3.3 L Chloride 106 Carbon Dioxide 19 L BUN 40 H Creatinine 1.54 H Estimated GFR 33.1 L BUN/Creatinine Ratio 26.0 H Glucose 162 H Calcium 10.3 H Total Bilirubin 2.8 H AST 664 H ALT 347 H Alkaline Phosphatase 137 H Total Protein 7.8 Albumin 4.3 Globulin 3.5 Albumin/Globulin Ratio 1.2 Lipase 172 COVID-19 PCR Negative 02/18/20 02/18/20 04:50 04:50 WBC 17.4 H D RBC 3.06 L Hgb 9.7 L Hct 29.0 L MCV 94.7 MCH 31.8 MCHC 33.6 RDW 12.7 Plt Count 128 L Neut % (Auto) 93.8 H Lymph % (Auto) 1.8 L [place] % (Auto) 4.2 Eos % (Auto) 0.1 L Baso % (Auto) 0.1 Neut # (Auto) 30526 H Lymph # (Auto) 300 L [place] # (Auto) 700 Eos # (Auto) 0 Baso # (Auto) 0 Sodium 135 L Potassium 4.0 Chloride 105 Carbon Dioxide 22 BUN 31 H Creatinine 1.54 H Estimated GFR 33.1 L BUN/Creatinine Ratio 20.1 Glucose 137 H Calcium 8.4 Total Bilirubin 0.8 AST 294 H ALT 280 H Alkaline Phosphatase 55 D Total Protein 5.8 L Albumin 3.0 L Globulin 2.8 Albumin/Globulin Ratio 1.1 Lipase COVID-19 PCR Assessment & Plan Assessment and plan (1) Chronic marginal ulcer: Status: Acute (2) CKD (chronic kidney disease) stage 3, GFR 30-59 ml/min: Status: Acute (3) H/O gastric bypass: Status: Acute (4) HTN (hypertension): Status: Acute (5) Acute calculous cholecystitis: Status: Acute Assessment & Plan narrative: 70-year-old woman doing well postop day 1 from laparoscopic cholecystectomy. Her white count has gone up as expected given the surgery yesterday and the significant infectious and inflammatory process going on in her right upper quadrant. We will slowly advance her diet, have her ambulate, and treat her pain. I will continue IV antibiotics renally dosed. We will consider dispo once her white count is coming down. Plan: Ambulate Advanced diet as tolerated IV antibiotic DVT prophylaxis Hold home blood pressure meds for now Will continue PPI for history of marginal ulcer Drain teaching COVID-19 COVID-19 status: Negative Result date/Date tested (Pos, Neg/Pending): 02/17/20 Time Spent With Patient Time with patient: 15-24 minutes Quality VTE Deep Vein Thrombosis/Pulmonary Embolism Present on Admission: No
[2020-02-18] MEDS: PANTOPRAZOLE 40 MG VIAL IV ×2 (09:20→21:32)
[2020-02-18] MEDS: DOCUSATE 100 MG CAPSULE PO ×2 (09:20→21:32)
[2020-02-18] MEDS: ACETAMINOPHEN 325 MG TABLET 650 MG PO (09:22)
[2020-02-18] MEDS: OXYCODONE IR 5 MG TABLET PO ×2 (10:27→16:41)
[2020-02-18 12:30] VITALS: BP 113/60; PULSE 71; RESP 16; TEMP 36.8; O2SAT 99
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
[2020-02-18 16:46] VITALS: BP 117/68; PULSE 71; RESP 18; TEMP 37.2; O2SAT 98
[2020-02-18 19:29] VITALS: BP 119/61; PULSE 74; RESP 18; TEMP 37.7; O2SAT 96
[2020-02-18] MEDS: HEPARIN 5,000 UNIT/ML VIAL 5000 UNIT SUBCUT (21:32)
[2020-02-18 23:56] VITALS: BP 110/51; PULSE 75; RESP 16; TEMP 36.7; O2SAT 97
[2020-02-19] MEDS: SODIUM CHLORIDE 0.9% FLUSH 10 ML IV ×3 (00:14→11:35)
[2020-02-19] MEDS: PIPERACILLIN-TAZO 2.25 GM/50 ML FROZ.PIGGY IV ×3 (00:14→11:35)
[2020-02-19 05:13] VITALS: BP 126/66; PULSE 79; RESP 16; TEMP 36.2; O2SAT 100
[2020-02-19] MEDS: OXYCODONE IR 5 MG TABLET PO ×3 (05:15→14:33)
[2020-02-19 06:36] LABS: Add Manual Diff / Slide Review NO; Basophils Absolute Auto 0 /uL (0-100); Basophils Percent Auto 0.4 % (0-2); Eosinophils Absolute Auto 200 /uL (0-450); Eosinophils Percent Auto 2.3 % (2-4); Hematocrit 28.7 % (36-46); Hemoglobin 9.9 g/dL (12.0-16.0); Lymphocytes Absolute Auto 700 /uL (1100-4500); Lymphocytes Percent Auto 6.2 % (25-40); Mean Corpuscular HGB Conc 34.4 % (30-36); Mean Corpuscular Hemoglobin 32.4 PG (26-34); Mean Corpuscular Volume 94.2 fL (80-100); Monocytes Absolute Auto 400 /uL (0-900); Monocytes Percent Auto 3.3 % (3-14); Neutrophils Absolute Auto 9500 /uL (1500-7000); Neutrophils Percent Auto 87.8 % (50-75); Platelet Count 127 X10^3/uL (150-400); Red Blood Cell Count 3.05 X10^6/uL (4.0-5.2); White Blood Cell Count 10.8 X10^3/uL (4.5-11.0)
[2020-02-19 07:35] VITALS: BP 110/61; PULSE 71; RESP 18; TEMP 36.4; O2SAT 98
--- NOTE | 2020-02-19 07:40 | P.DS_ITS ---
History of Present Illness History of Present Illness Chief complaint: upper abdominal pain/fever Narrative: This is a 70-year-old woman with history of DM2, HTN, hysterectomy, and Tristen-en-Y gastric bypass many years ago, and marginal ulcer, who has had several episodes of epigastric pain, the worst of which was beginning last evening and has lasted through the night into this morning. She came into the ER with severe epigastric pain was found to have imaging and labs consistent with acute cholecystitis. Her LFTs and bilirubin are elevated, and her bile duct was enlarged on ultrasound, and therefore MRCP was recommended, and is pending at this time. She denies any significant cardiac history. She does say she has a chronic kidney dysfunction, which has been stable for many years. Her creatinine in the ER is 1.5. Her AST and ALT are 664 in 347, her alk-phos is 137, and her T bili is 2.8. Her white count is 4.9, and she has a left shift with PMNs 98%. She denies any fever or jaundice at home. She did have a temperature 100.9? when she came into the ER, which has come down to 99.4 at this time. She has gotten Rocephin and some fluid boluses. Her blood pressure dropped into the 60s a few hours ago, but has been in the 1 100s systolic for the past few hours. She is normally hypertensive at baseline, and takes antihypertensive medications. PMH: DM2, HTN, CKD, marginal ulcer PSH: RYGBP 20 years ago, hysterectomy, tummy tuck Meds: omeprazole, irbesartan, HCTZ (pt does not know doses, but daughter will find out and call nurse) Allergies: denies FMH: DM2, denies family history of liver or biliary disease SOC: denies TOB, EtOH, other substances; moved here three weeks ago from [facility]; says she maintained excellent medical care in [place] Review of Systems Narrative: GENERAL: Complains chills, fatigue, malaise, fever, sweats. HEENT: Denies sinus pain, ear pain, sore throat, difficulty swallowing, dizziness. RESPIRATORY: Denies dyspnea, cough, wheezing, hemoptysis, sputum. CARDIOVASCULAR: Denies chest pain, palpitations, orthopnea, edema, GASTROINTESTINAL: Complains nausea, vomiting, abdominal pain, denies diarrhea, constipation, melena. : Denies dysuria, frequency, incontinence, hematuria, urinary retention. MUSCULOSKELETAL: denies weakness, joint pain, or bony pain SKIN: Denies rash, skin lesions, or other NEUROLOGIC: Denies weakness, headache, numbness, change in speech, confusion, seizures, incoordination. PSYCHIATRIC: No concerning psychosocial issues. Physical Exam GENERAL: Alert, uncomfortable. No jaundice. Nontoxic appearing. Appears stated age. Answers questions promptly and appropriately. Vital signs noted. HENT: Normocephalic, atraumatic. Hearing intact. EYES: Conjunctiva pink, sclera white, no periorbital swelling. CARDIOVASCULAR: Regular rate. No pedal edema. RESPIRATORY: Non-tachypneic, breathing comfortably on room air. GASTROINTESTINAL: Abdomen soft and non-distended; minimally tender, with well- healed laparoscopic gastric bypass incisional scar GENITALURINARY: No flank tenderness. MUSCULOSKELETAL: Equal tone and mass bilaterally. SKIN: Warm, dry, soft, appropriate color for ethnicity. No other lesions, rashes, or wounds. NEURO: Alert and Oriented X 3. No gross sensory deficits, or cognitive issues. PSYCH: Appropriate affect and mood. Discharge Providers Provider Date of admission: 02/17/20 12:14 Discharge Date: 02/19/20 Discharge provider: Lorrie Hoyos MD Summary Hospital Course Discharge Diagnosis: Acute cholecystitis Hospital Course: Patient was admitted for acute cholecystitis, taken to the operating room, she had a laparoscopic cholecystectomy, with significant inflammatory change in the right upper quadrant as well as transmural bilious exudate around the gallbladder. A drain was left in the right upper quadrant after her laparoscopic cholecystectomy. Her white count was 17 on the following day, and she was kept for antibiotics and pain control. Her white count is down to 10 today. She appears nontoxic and her drain output is serosanguineous. Status at Discharge Cognitive/behavioral status at discharge: oriented Functional status at discharge: independent ambulation Overall status at discharge: patient is progressing back to baseline Time Spent with Patient Time spent: Greater than 30 minutes Exam Vital Signs (past 8 hours): - 02/18/20 23:56 02/19/20 05:13 Temperature 98.1 F 97.1 F L Pulse Rate 75 79 Respiratory Rate 16 16 Blood Pressure 110/51 L 126/66 Pulse Oximetry 97 100 Oxygen Delivery Method Room Air Oxygen Flow Rate 0 Narrative Exam Narrative: GENERAL: Alert, oriented, comfortable. Appears stated age. Answers questions promptly and appropriately. Vital signs noted. HENT: Normocephalic, atraumatic. Hearing intact. EYES: Conjunctiva pink, sclera white, no periorbital swelling. CARDIOVASCULAR: Regular rate. No pedal edema. RESPIRATORY: Non-tachypneic, breathing comfortably on room air. GASTROINTESTINAL: Abdomen soft and non-distended; incisions clean dry and intact, PARTH drain serosanguineous GENITALURINARY: No flank tenderness. MUSCULOSKELETAL: Equal tone and mass bilaterally. SKIN: Warm, dry, soft, appropriate color for ethnicity. No other lesions, rashes, or wounds. NEURO: Alert and Oriented X 3. No gross sensory deficits, or cognitive issues. PSYCH: Appropriate affect and mood. Objective Labs Result Diagrams: 02/19/20 06:25 02/18/20 04:50 Labs: Laboratory Results - last 24 hr 02/19/20 06:25 WBC 10.8 RBC 3.05 L Hgb 9.9 L Hct 28.7 L MCV 94.2 MCH 32.4 MCHC 34.4 RDW 13.0 Plt Count 127 L Neut % (Auto) 87.8 H Lymph % (Auto) 6.2 L [place] % (Auto) 3.3 Eos % (Auto) 2.3 Baso % (Auto) 0.4 Neut # (Auto) 9500 H Lymph # (Auto) 700 L [place] # (Auto) 400 Eos # (Auto) 200 Baso # (Auto) 0 Discharge Assessment & Plan Assessment and Plan Assessment: Recovering well status post laparoscopic cholecystectomy for severe acute cholecystitis Plan of Treatment: Discharge home with p.o. pain meds, PARTH drain management, and follow-up next week Discharge Plan Discharge Plan Patient Disposition: Home Discharge comment: You will be prescribed a narcotic pain medication. You may also use ibuprofen or Aleve as well as Tylenol/ Acetaminophen for pain after surgery. Make sure you do not take more than 3000 mg of Acetaminophen per day for many source. There may be Acetaminophen in cold medications or headache remedies. Using an NSAID such as ibuprofen or Aleve will help with inflammation . Do not take more than recommended. You may take it along with or instead of your prescribed pain medication. Make sure to take the stool softener to prevent constipation from the narcotic pain medication. If you are not able have a bowel movement 24 hours after surgery, or you feel constipated please take an additional laxative such as MiraLax or Senna. Avoid any straining on the toilet. Avoid heavy lifting, pulling, or pushing more than 10 lbs or doing other activities that strain the abdomen or increase the abdominal pressure such as sit-ups, core work outs, and attempt to prevent frequent coughing. If you have fevers, jaundice, intractable nausea/vomiting, or intractable pain please call the doctor's office or if symptoms are severe come into the ER. If you call after hours please choose the option to contact the surgeon evaluation assistant rather than leaving a message. You may continue your regular home medications as before. Please call [facility] on Saturday to make a follow up appointment for Saturday or of next week with Dr. Hoyos. Discharge orders & Medications Prescriptions: New oxycodone 5 mg tablet 5 mg PO Q4H PRN (Reason: Postoperative pain) Qty: 30 RF: 0 docusate sodium 100 mg capsule 100 mg PO BID Qty: 20 RF: 0 Follow up/Referrals: Lorrie Hoyos MD [Physician] - Diet/Activity/Treatments Diet: Diet as Tolerated Skin/Wound/Dressing Care Report to your healthcare provider any signs of infection, such as:: chills, fever, night sweats, increased pain, unusual drainage and unusual redness Visit Report/Discharge Packet Instructions: DI for Lam-Judd Drains, DI for Prescription Opioid Use, DI for Laparoscopic Cholecystectomy, [facility]: Wound Care Stand Alone Forms: Surgery Discharge Quality VTE Deep Vein Thrombosis/Pulmonary Embolism Present on Admission: No
--- NOTE | 2020-02-19 09:03 | CM.DPC ---
DCP: continued: Dr. Hoyos was here and has ok'd pt for d/c today to home setting. She will followup with Dr. Hoyos in clinic next week.
[2020-02-19 11:19] VITALS: BP 114/59; PULSE 74; RESP 16; TEMP 36.7; O2SAT 98
--- NOTE | 2020-02-19 11:21 | PC.NURSE ---
Day shift: Pt was aloud to sleep after morning assessments. Will give her AM meds now and Pt is happy about the extra sleep. SHe stated that she did not sleep very well last night. Will continue to monitor. Call light in reach and her daughter is in the room.
[2020-02-19] MEDS: DOCUSATE 100 MG CAPSULE PO (11:34)
[2020-02-19] MEDS: HEPARIN 5,000 UNIT/ML VIAL 5000 UNIT SUBCUT (11:34)
[2020-02-19] MEDS: PANTOPRAZOLE 40 MG VIAL IV (11:34)
--- NOTE | 2020-02-19 14:46 | PC.NURSE ---
Day shift: Went over drain teaching in depth and answered all questions. Paperwriya signed as well. Pt has all personal belongings and MD scripts went electronic to her pharmacy. Medicated for pain per MAR just prior to d/c. Her lap sites are CDI. Emptied 30ml serosang from [facility] just prior to d/c.
== END 2020-02-19 14:52 | disposition home or self-care (01) | DRG 419 ==
LOC: ED 11:53 → AC 12:16
PROVIDERS: Admitting Provider Surgery; Emergency Provider Emergency Medicine; Referring Provider Emergency Medicine; Visit Provider Surgery
PROC: 0FT44ZZ Resection of Gallbladder, Percutaneous Endoscopic Approach (ICD-10-PCS; CPT 47562; principal; 2020-02-17 14:30)
DX: K80.00 Calculus of gallbladder with acute cholecystitis without obstruction (principal); E11.22 Type 2 diabetes mellitus with diabetic chronic kidney disease; N18.3 Chronic kidney disease, stage 3 (moderate); I12.9 Hypertensive chronic kidney disease with stage 1 through stage 4 chronic kidney disease, or unspecified chronic kidney disease; R74.0 Nonspecific elevation of levels of transaminase and lactic acid dehydrogenase [LDH]; K82.8 Other specified diseases of gallbladder; Z98.84 Bariatric surgery status; Z11.59 Encounter for screening for other viral diseases
CPT/HCPCS: 36415; 36592; 47563; 74176; 74181; 76705; 80053; 83690; 85025; 87635; 93005; 96361; 96365; 96375; 99222; 99285; C9113; J1100; J1644; J2270; J2405; J2543; J2704; J2765; J3010